=== PATIENT | male | born 1995 | race Hispanic/Latino ===

== ENCOUNTER → 2025-02-08 | Outpatient (CLI) | payer OTHER, SELFPAY ==
--- NOTE | 2025-02-08 15:56 | RAD_ITS ---
PROCEDURE: L/S SPINE MIN 4 VIEWS 02/08/2025 REASON FOR EXAM: LOW BACK PAIN TECHNIQUE: Procedure Code: RADSPLS Modality: DX Procedure: L/S SPINE MIN 4 VIEWS COMPARISON: None. FINDINGS: No evidence of fracture or subluxation. Alignment is anatomic. Well preserved disc spaces. No significant degenerative changes are appreciated. Normal bone mineralization. Sacroiliac joints appear normal and symmetric. Grossly unremarkable soft tissues. RAD/L/S Spine Min 4 Views IMPRESSION: No evidence of fracture, malalignment, or significant degenerative changes. Reading Location: [facility]
--- OUTSIDE RECORDS SUMMARY | 2025-02-08 18:09 | XMS RPT_ITS | CCD ---
Author Organization [facility] Care Team Providers Care Last Waxer Name Role Phone Austin Miguel Attending Unavailable Austin Miguel Attending Provider [phone] Care Physician, No Primary Primary Care Provider Unavailable Austin Miguel Referring Provider Medications Current Medications Medication Drug Class(es) Dates Sig (Normalized) Sig (Original) atenolol 25 mg oral tablet (1 source) beta-Adrenergic Suki Start: 08-30-2024 Atenolol 25 mg tablet Active 12.5 mg PO daily August 30, 2024 12:00am cyclobenzaprine hydrochloride 10 mg oral tablet (1 source) Muscle Relaxant Start: 02-08-2025 take 1 tablet by mouth three times daily as needed for muscle spasms Cyclobenzaprine 10 mg tablet Active 10 mg PO THREE TIMES A DAY as needed for muscle spasm 21 7 0 February 08, 2025 12:00am February 14, 2025 12:00am escitalopram 10 mg oral tablet (1 source) Serotonin Reuptake Inhibitor Start: 08-30-2024 take 1 tablet by mouth once daily Escitalopram Oxalate 10 mg tablet Active 10 mg PO daily August 30, 2024 12:00am predniSONE 10 mg oral tablet (1 source) Start: 02-08-2025 Prednisone 10 mg tablet Active 10 mg PO As Directed 30 12 0 February 08, 2025 12:00am February 19, 2025 12:00am Unspecified contact dermatitis, unspecified cause Take 4 tabs once daily days 1-3 3 tabs once daily days 4-6 2 tabs once daily days 7-9 and 1 tab once daily days 10-12. Completed/Discontinued Medications Medication Drug Class(es) Dates Sig (Normalized) Sig (Original) hydrocortisone 10 mg/ml / neomycin 3.5 mg/ml / polymyxin b 40133 unt/ml otic suspension (1 source) Aminoglycoside Antibacterial, Polymyxin-class Antibacterial, Corticosteroid Start: 08-30-2024 End: 09-09-2024 Neomycin-Polymyxi n-Hc 3.5-10,000-1 mg/mL-unit/mL-% drops,suspension Discontinued 3 NMA OTIC Q4H 10 10 0 August 30, 2024 12:00am September 08, 2024 12:00am September 09, 2024 6:34am apply to (cotton) wick; replace wick every 24 hours Problems Problem Classification Problem Date Documented Da te Episodic/Chronic Essential hypertension (1 source) Hypertensive disorder; Translations: [Essential (primary) hypertension] 08-30-2024 Chronic Other ear and sense organ disorders (1 source) Acute otitis externa; Translations: [Unspecified acute noninfective otitis externa, right ear] 08-30-2024 Episodic Sprains and strains (2 sources) Low back strain; Translations: [Strain of muscle, fascia and tendon of lower back, initial encounter] 02-08-2025 Episodic Results Test Name Value Interpretation Reference Range Facil ity Urgent Care Visit Reporton 0 08-30-2024 Urgent Care Visit Report [facility] [address], [address] [place] [id number] OFFICE VISIT Date of Service: 08/30/24 MR#: [id number] Acct: [id number] Name: Girma Barrios Rep #: [id number] : 1995 Provider: YUNIER Stoner Age/Sex: 29/M Location: [facility] Status: Signed Intake Vital Signs 08/30/24 07:17 Height 5 ft 11 in Weight: 242 lb 8 oz BMI 33.8 BP 122/60 H Blood Pressure Location Lt brachial Position Sitting Respiration 16 Pulse 84 Pulse Source NIBP Temp 98.5 F Temp Source Oral Pulse Oximetry (%) 98 Oxygen Delivery Method room air Intake Visit Reasons: EAR PAIN 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 denies fever, [place], BA, cough, congestion. [facility] Medical History (Updated 08/30/24 @ 07:24 by Austin FAYE, PA) HTN (hypertension) Surgical History (Updated 08/30/24 @ 07:19 by Socorro Butcher) History of removal of cyst History of gastric bypass Family History (Updated 08/30/24 @ 07:19 by Socorro Butcher) Other Diabetes Hypertension Obesity Social History (Updated 08/30/24 @ 07:20 by Socorro Butcher) Smoking Status: Never smoker alcohol intake: never substance use type: does not use HPI HPI Chief Complaint: right ear pain Details: Girma Barrios, is a 29 M who presents to the office today for complaint of right ear pain. Patient states that he does cardio swelling is concern for a possible swimmer's ear. He denies otorrhea or hearing loss. No fever, chills, sweats. No nausea, vomiting or diarrhea. No other associated symptoms or alleviating/aggravati ng factors. ROS Const Constitutional: No other (6 system ROS completed with pertinent findings in the HPI otherwise normal.) Exam Const General: cooperative and healthy appearing [facility] Head: normocephalic and atraumatic Ears: hearing grossly normal bilaterally and EAC abnormal erythema on the right, edema on the right and EAC tenderness on the right Nose: external nose normal Face and sinus: normal facial exam and face symmetric Mouth: oral mucosae normal Throat: posterior oropharynx normal Resp Effort Inspection: normal respiratory effort Auscultation: Bilateral: Clear to Auscultation Cardio Rate: regular rate Rhythm: regular rhythm Skin General: no rashes or lesions noted Neuro General: patient alert Psych Appearance: grossly normal Mental Status: mental status grossly normal Coding Level of Care Code Off vis,new,level 3 Diagnoses Acute otitis externa of right ear H60.501 Assessment and Plan Assessment and Plan (1) Acute otitis externa of right ear: Status: Acute Plan: Eardrops as prescribed today. Encouraged to get plenty of rest, drink lots of clear liquids, and use Tylenol or Ibuprofen (unless contraindicated) for fever and comfort. Patient also educated on other symptomatic management techniques. To be seen in 7-10 days if no improvement; sooner if worsening of symptoms. Patient advised of potential red flags and when appropriate to report to the ED. Patient verbalized understanding and agreement with all the above. Medications: New tjucyqja-gbcaptiql-UA 3.5-10,000-1 mg/mL-unit/mL-% apply to (cotton) wick; replace wick every 24 hours 3 drps otic (ear) Q4H 10 mL 0RF 10 days Clinical Quality Measures Falls Risk Screening/Assistive Devices Have you fallen in the past year?: No 08/30/24 07 Date Austin Kwong Signature: Date (if applicable) CC: Normal [facility] Vital Signs Date Time Vital Sign Value Performing Clinician Faci lity 02-08-2025 15:33-0400 Body temperature 98.9 [degF] No Primary Care Physician [facility] 02-08-2025 15:33-0400 Diastolic blood pressure 60 mm[Hg] No Primary Care Physician [facility] 02-08-2025 15:33-0400 Heart rate 86 /min No Primary Care Physician [facility] 02-08-2025 15:33-0400 Respiratory rate 14 /min No Primary Care Physician [facility] 02-08-2025 15:33-0400 SaO2% (BldA) [Mass fraction] 98 % No Primary Care Physician [facility] 02-08-2025 15:33-0400 Systolic blood pressure 108 mm[Hg] No Primary Care Physician [facility] Encounters Encounter Date Encounter Type Care Provider Facility Start: 02-08-2025 End: 02-08-2025 ambulatory No Primary Care Physician [facility] Start: 02-08-2025 End: 02-08-2025 Patient encounter procedure Austin FAYE [facility] Work Phone: Start: 08-30-2024 End: 08-30-2024 ambulatory Austin FAYE Facility:[facility] Plan of Treatment Date Care Activity Detail Author Start: 02-08-2025 X-ray of lumbosacral spine L/S Spine Min 4 Views [facility] Start: 02-08-2025 XR Spine Lumbar and Sacrum GE 4 Views [facility] Payers Date Payer Category Payer Self-pay 2024 Unknown GLM [id number] Unknown [id number] Unknown [id number] Social History Date Type Detail Facility Start: 08-30-[facility] Start: 1995 Sex Assigned At Male [facility] Evaluation note Note Date & Type Note Facility Evaluation note Diagnosis Onset Date Resolution Strain of lumbar region acute February 08 3:27pm [facility] Work Phone: Reason for referral (narrative) Note Date & Type Note Facility Reason for referral (narrative) No reason for referral information available [facility] Work Phone: Summary Purpose Family History Relationship Condition Age at Onset Recorded Date/T rudolph Not Specified Diabetes mellitus Unknown Hypertension Unknown Obesity Unknown Advance Directives No Advanced Directives Records Found Chief Complaint and Reason for Visit Chief Complaint Admit Date LOWER BACK PAIN February 08, 2025 3: 27pm Reason for Visit Admit Date Strain of lumbar region February 08 3:27pm Additional Source Comments (unrecognized sect ion and content) No Status Records Found INFORMATION SOURCE (unrecogn ized section and content) DATE CREATED AUTHOR 09/01/2024 [facility] Care Teams (unrecognized sec tion and content) Team Status: Active Member Role/Relationship Status Dates No Primary Care Physician Primary Care Provider Active Team Status: Inactive Member Role/Relationship Status Dates YUNIER Dubon Attending Provider Active Sta rt: February 08, 2025 End: February 08, 2025 Team Status: Active Member Role/Relationship Status Dates No Primary Care Physician Primary Care Provider Active Start: February 08, 2025 YUNIER Dubon Attending Provider Active Sta rt: February 08, 2025 YUNIER Dubon Referring Provider Active Sta rt: February 08, 2025 Goals (unrecognized section and content) Goals may be documented in a n alternate section FOR RECORDS PERTAINING TO PATIENTS WHO ARE OR HAVE BEEN ENROLLED IN A CHEMICAL DEPENDENCY/SUBSTANCEABUSE PROGRAM, SOME INFORMATION MAY BE OMITTED. This clinical summary was aggregated from multiple sources. Caution should be exercised in using it in the provision of clinical care. This summary normalizes information from multiple sources, and as a consequence, information in this document may materially change the coding, format and clinical context of patient data. In addition, data may be omitted in some cases. CLINICAL DECISIONS SHOULD BE BASED ON THE PRIMARY CLINICAL RECORDS. [facility] [email or web address] provides no warranty or guarantee of the accuracy or completeness of information in this document.
== END | disposition home or self-care (01) ==
LOC: MTRAD 15:56
PROVIDERS: Referring Provider Physician Assistant Surgical; Visit Provider Physician Assistant Surgical
DX: S39.012A Strain of muscle, fascia and tendon of lower back, initial encounter (principal); X58.XXXA Exposure to other specified factors, initial encounter
CPT/HCPCS: 72110